=== PATIENT | female | born 1935 | race Caucasian/White ===

== ENCOUNTER → 2019-04-04 14:56 | Outpatient (CLI) | payer MEDICARE ==
[2019-04-11 17:08] LABS: OVA + PARASITE EXAM Final report (())
== END | disposition home or self-care (01) ==
LOC: D.LAB 14:56
PROVIDERS: ATTEND Internal Medicine Gastroenterology
DX: R19.7 Diarrhea, unspecified (principal); R63.4 Abnormal weight loss; K90.0 Celiac disease

== ENCOUNTER → 2019-04-12 07:31 | Outpatient (CLI) | payer MEDICARE | END | disposition home or self-care (01) | LOC: D.RAD 04-11 08:30 | PROVIDERS: ATTEND Internal Medicine Gastroenterology | DX: R19.7 Diarrhea, unspecified (principal); K90.0 Celiac disease; R63.4 Abnormal weight loss ==